=== PATIENT | female | born 1965 | race Caucasian/White ===

== ENCOUNTER 2019-11-20 00:03 | Emergency (ER) | payer OTHER ==
[~2019-11-20] VITALS: Ht 149.9 cm; Wt 88.5 kg
[2019-11-20] MEDS ORDERED: AVALIDE 300-121 EACH (00:25)
[2019-11-20] MEDS ORDERED: FOLIC ACID0.8 M1 (00:26)
[2019-11-20] MEDS ORDERED: SYNTHROID175 MCG (00:26)
[2019-11-20] MEDS ORDERED: SULFASALAZINE500 M1 (00:26)
[2019-11-20] MEDS ORDERED: SIMVASTATIN5 MG (00:26)
[2019-11-20] MEDS ORDERED: ASPIR 8181 MG (00:27)
[2019-11-20] MEDS ORDERED: ZITHROMAX500 MG PO (01:48)
== END 2019-11-20 01:59 | disposition home or self-care (01) ==
LOC: ER 00:03
DX: R53.1 Weakness (principal)

== ENCOUNTER 2022-12-21 21:26 | Emergency (ER) | payer OTHER ==
[~2022-12-21] VITALS: Ht 157.5 cm; Wt 90.7 kg
[~2022-12-21 21:26] MED LIST: ASPIR 8181 MG; AVALIDE 300-121 EACH; FOLIC ACID0.8 M1; SIMVASTATIN5 MG; SULFASALAZINE500 M1; SYNTHROID175 MCG; ZITHROMAX500 MG PO
== END 2022-12-21 23:43 | disposition home or self-care (01) ==
LOC: ER 21:26
DX: T54.3X1A Toxic effect of corrosive alkalis and alkali-like substances, accidental (unintentional), initial encounter (principal); T23.402A Corrosion of unspecified degree of left hand, unspecified site, initial encounter; T24.412A Corrosion of unspecified degree of left thigh, initial encounter; T22.412A Corrosion of unspecified degree of left forearm, initial encounter; Y93.89 Activity, other specified; Y92.018 Other place in single-family (private) house as the place of occurrence of the external cause; Y99.9 Unspecified external cause status; I10 Essential (primary) hypertension

== ENCOUNTER 2024-01-10 06:06 | Emergency (ER) | payer OTHER ==
[~2024-01-10] VITALS: Ht 147.3 cm; Wt 88.9 kg
[2024-01-10] MEDS ORDERED: AVALIDE 300-121 EACH PO (06:19)
[2024-01-10] MEDS ORDERED: PROTONIX20 MG PO (06:20)
[2024-01-10] MEDS ORDERED: METHYLPREDNISOLONE SOD SUCC 125 MG VIAL IV ONE (06:45)
[2024-01-10] MEDS ORDERED: GUAIFENESIN/DEXTROMETHORPHAN 10ML BLIST.PACK PO ONE ×2 (06:45→07:19)
[2024-01-10] MEDS ORDERED: KETOROLAC TROMETHAMINE 30 MG VIAL IV ONE (07:00)
[2024-01-10] MEDS ORDERED: LEVALBUTEROL HCL 1.25 MG/3 ML SOLUTION IH SCH (07:00)
[2024-01-10] MEDS ORDERED: KETOROLAC TROMETHAMINE 30 MG VIAL ONE (07:19)
[2024-01-10] MEDS ORDERED: METHYLPREDNISOLONE SOD SUCC 125 MG VIAL ONE (07:19)
[2024-01-10] MEDS ORDERED: LEVALBUTEROL HCL 1.25 MG/3 ML SOLUTION IH ONE (07:52)
[2024-01-10 08:56] LABS: HEMATOCRIT 44.2 % (36.0-45.00); HEMOGLOBIN 15.2 g/dL (12.0-15.00); MEAN CELL VOLUME 91.5 fL (80.00-100.00); MEAN CORPUSCULAR HEMOGLOBIN 31.4 pg (27.00-32.0); MEAN CORPUSCULAR HGB CONC 34.3 g/dl (32.0-36.0); PLATELET COUNT 252 K/uL (150-450); RED BLOOD COUNT 4.83 M/uL (4.00-6.00); RED CELL DISTRIBUTION WIDTH 13.8 % (11.5-14.5)
[2024-01-10 09:08] LABS: ALBUMIN 3.9 gm/dL (3.4-5.0); BILIRUBIN TOTAL 0.56 mg/dL (0.3-1.2); CALCIUM 9.8 mg/dL (8.5-10.1); CREATININE SERUM 0.97 mg/dL (0.55-1.02); GFR 58.78; GLOBULINA 3.6 G/DL (2.4-3.5); POTASSIUM 3.89 mEq/L (3.5-5.1); TOTAL PROTEIN 7.5 gm/dL (6.4-8.2)
== END 2024-01-10 10:14 | disposition home or self-care (01) ==
LOC: ER 06:08
PROVIDERS: General Practice
DX: J40 Bronchitis, not specified as acute or chronic (principal); J06.9 Acute upper respiratory infection, unspecified; R05.9 Cough, unspecified; Z20.822 Contact with and (suspected) exposure to COVID-19; I10 Essential (primary) hypertension

== ENCOUNTER 2024-05-15 01:40 | Emergency (ER) | payer OTHER ==
[~2024-05-15] VITALS: Ht 147.3 cm; Wt 86.2 kg
[~2024-05-15 01:40] MED LIST changes: +AVALIDE 300-121 EACH PO; +PROTONIX20 MG PO
[2024-05-15] MEDS ORDERED: OZEMPIC0.25 MG/02 (02:15)
[2024-05-15] MEDS ORDERED: FAMOTIDINE/PF 20 MG in 0.9 % SODIUM CHLORIDE 8 ML IV PUSH STA (02:48)
[2024-05-15] MEDS ORDERED: DIPHENOXYLATE HCL/ATROPINE 1 UDTAB TABLET PO ONE (03:00)
[2024-05-15] MEDS ORDERED: HYOSCYAMINE SULFATE 0.125 MG TAB.SUBL SL ONE (03:00)
[2024-05-15] MEDS ORDERED: 0.9 % SODIUM CHLORIDE 1,000 ML IV SCH (03:00)
[2024-05-15] MEDS ORDERED: ONDANSETRON HCL 2 MG/ML VIAL IV ONE (03:00)
[2024-05-15] MEDS ORDERED: ONDANSETRON HCL 2 MG/ML VIAL ONE (03:32)
[2024-05-15] MEDS ORDERED: FAMOTIDINE/PF 20 MG/2 ML VIAL ONE (03:32)
[2024-05-15] MEDS ORDERED: HYOSCYAMINE SULFATE 0.125 MG TAB.SUBL ONE (03:32)
[2024-05-15 05:18] LABS: HEMOGLOBIN 16.5 g/dL (12.0-15.00); MEAN CELL VOLUME 96.2 fL (80.00-100.00); MEAN CORPUSCULAR HEMOGLOBIN 32.4 pg (27.00-32.0); MEAN CORPUSCULAR HGB CONC 33.7 g/dl (32.0-36.0); PLATELET COUNT 290 K/uL (150-450); RED CELL DISTRIBUTION WIDTH 14.4 % (11.5-14.5)
[2024-05-15 05:48] LABS: ALBUMIN 4.3 gm/dL (3.4-5.0); BILIRUBIN TOTAL 0.47 mg/dL (0.3-1.2); BILIRUBIN,CONJUGATED 0.14 mg/dL (0.0-0.2); BILIRUBIN,UNCONJUGATED 0.33 mg/dL (0.0-0.6); CALCIUM 9.7 mg/dL (8.5-10.1); CREATININE SERUM 1.2 mg/dL (0.55-1.02); GFR 45.98; GLOBULINA 3.8 G/DL (2.4-3.5); POTASSIUM 4.05 mEq/L (3.5-5.1); TOTAL PROTEIN 8.1 gm/dL (6.4-8.2)
[2024-05-15] MEDS ORDERED: PEPCID AC20 MG PO (06:46)
[2024-05-15] MEDS ORDERED: ONDANSETRON ODT8 MG PO (06:46)
[2024-05-15] MEDS ORDERED: METOCLOPRAMIDE HCL 10 MG in DEXTROSE 5 % IN WATER 50 ML IV ONE (07:30)
== END 2024-05-15 08:43 | disposition home or self-care (01) ==
LOC: ER 01:42
PROVIDERS: General Practice
DX: K52.89 Other specified noninfective gastroenteritis and colitis (principal); R11.2 Nausea with vomiting, unspecified; E11.9 Type 2 diabetes mellitus without complications; I10 Essential (primary) hypertension
CPT/HCPCS: 36415; 96365; 96366; 99282; J2405; J7030

== ENCOUNTER 2024-07-25 08:58 | Inpatient (IN) | payer OTHER ==
[~2024-07-25] VITALS: Ht 149.9 cm; Wt 83.5 kg
[~2024-07-25 08:58] MED LIST changes: +ONDANSETRON ODT8 MG PO; +OZEMPIC0.25 MG/02; +PEPCID AC20 MG PO
--- NOTE | 2024-07-25 09:25 | NUR ---
PTE ALERTA Y ORIENTADA X3 VERBALIZA TENER VOMITOS Y DIARREA DESDE HACE 3 JAMES SE LE CORY S/V ESTABLE Y SE UBICA EN ROJAS
[2024-07-25] MEDS ORDERED: FAMOTIDINE/PF 20 MG/2 ML VIAL IV PUSH ONE (10:30)
[2024-07-25] MEDS ORDERED: 0.9 % SODIUM CHLORIDE 1,000 ML IV SCH ×2 (10:30→17:15)
[2024-07-25] MEDS ORDERED: ONDANSETRON HCL 2 MG/ML VIAL IV ONE (10:30)
--- NOTE | 2024-07-25 10:50 | NUR ---
SE ORIENTA PTE SOBRE TX, REFIERE ENTENDER Y ACEPTAR. SE CORY MUESTRAS DE LABORATORIO Y SE CANALIZA, SE ADMINISTRAN MEDICAMENTOS SHANDRA ORDEN MEDICA Y BAJO MEDIDAS ASEPTICAS. PTE TOLERA.
[2024-07-25 11:31] LABS: HEMATOCRIT 43.9 % (36.0-45.00); HEMOGLOBIN 15.2 g/dL (12.0-15.00); MEAN CELL VOLUME 93.9 fL (80.00-100.00); MEAN CORPUSCULAR HEMOGLOBIN 32.6 pg (27.00-32.0); MEAN CORPUSCULAR HGB CONC 34.7 g/dl (32.0-36.0); PLATELET COUNT 260 K/uL (150-450); RED BLOOD COUNT 4.68 M/uL (4.00-6.00); RED CELL DISTRIBUTION WIDTH 13.5 % (11.5-14.5)
[2024-07-25 11:44] LABS: ALBUMIN 3.9 gm/dL (3.4-5.0); BILIRUBIN TOTAL 0.41 mg/dL (0.3-1.2); CALCIUM 9.2 mg/dL (8.5-10.1); CREATININE SERUM 1.29 mg/dL (0.55-1.02); GFR 42.3; GLOBULINA 3.5 G/DL (2.4-3.5); POTASSIUM 3.6 mEq/L (3.5-5.1); TOTAL PROTEIN 7.4 gm/dL (6.4-8.2)
[2024-07-25] MEDS ORDERED: METRONIDAZOLE/SODIUM CHLORIDE 500 MG/100 ML PIGGYBACK IV ONE (12:15)
[2024-07-25] MEDS ORDERED: LOPERAMIDE HCL 2 MG CAPSULE PO ONE (15:30)
[2024-07-25] MEDS ORDERED: PANTOPRAZOLE SODIUM 40 MG in 0.9 % SODIUM CHLORIDE 8 ML IV PUSH STA (17:20)
[2024-07-25] MEDS ORDERED: CIPROFLOXACIN IN 5 % DEXTROSE 200 ML IV SCH (17:40)
[2024-07-25] MEDS ORDERED: ONDANSETRON HCL 4 MG in 0.9 % SODIUM CHLORIDE 50 ML IV PRN (17:45)
[2024-07-25] MEDS ORDERED: 0.9 % SODIUM CHLORIDE 1,000 ML IV ONE (17:45)
[2024-07-25 19:34] LABS: URINE APPEARANCE Cloudy; URINE BILIRRUBIN Small (NEGATIVE); URINE BLOOD NHT; URINE COLOR Dark Yellow; URINE GLUCOSE Negative (NEGATIVE); URINE KETONE Trace (NEGATIVE); URINE LEUKOCYTE Moderate; URINE NITRATE Negative; URINE PROTEIN Trace (NEGATIVE); URINE UROBILINOGEN 0.2 E.U./dl
[2024-07-25 19:39] LABS: URINE BACTERIA 698.8 uL (0.0-1933); URINE CAST 3.97 uL (0.0-1.40); URINE EPITHELIAL CELLS 91.9 uL (0.0-38.8); URINE RBC 18.2 uL (0.0-20.8); URINE WBC 1273.2 uL (0.0-23.2)
[2024-07-25 19:45] LABS: INR 1.06; PARTIAL THROMBOPLASTIN TIME 28.2 SECONDS (22.0-34.0); PROTHROMBIN TIME 11.5 SECONDS (9.0-11.5)
[2024-07-25 21:04] LABS: ob POSITIVE (NEGATIVE)
[2024-07-25 22:48] VITALS: BP 153/76; O2SAT 97
[2024-07-26] MEDS ORDERED: METRONIDAZOLE/SODIUM CHLORIDE 100 ML IV SCH (01:00)
[2024-07-26 01:23] VITALS: BP 138/81
[2024-07-26] MEDS ORDERED: LEVOTHYROXINE SODIUM 175 MCG TABLET PO SCH (06:00)
[2024-07-26 08:19] VITALS: BP 142/63; O2SAT 94
[2024-07-26] MEDS ORDERED: KETOROLAC TROMETHAMINE 30 MG VIAL IM PRN (08:45)
[2024-07-26] MEDS ORDERED: ENOXAPARIN SODIUM 40 MG/0.4 ML SYRINGE SUBCUTANEO SCH (09:00)
[2024-07-26] MEDS ORDERED: FAMOTIDINE/PF 20 MG in 0.9 % SODIUM CHLORIDE 8 ML IV PUSH SCH (09:00)
[2024-07-26] MEDS ORDERED: IRBESARTAN 75 MG TABLET PO SCH (14:00)
[2024-07-26] MEDS ORDERED: FOLIC ACID 1 MG TABLET PO SCH (17:00)
[2024-07-26] MEDS ORDERED: SIMVASTATIN 10 MG TABLET PO SCH (17:00)
[2024-07-26 18:04] VITALS: BP 147/79; O2SAT 98
[2024-07-27 01:14] VITALS: BP 119/62
[2024-07-27] MEDS ORDERED: LEVOTHYROXINE SODIUM 150 MCG TABLET PO SCH (06:00)
[2024-07-27 08:35] VITALS: BP 129/79
[2024-07-27 17:05] VITALS: BP 155/74; O2SAT 100
[2024-07-28 00:50] VITALS: BP 120/51
[2024-07-28 08:42] VITALS: BP 155/81; O2SAT 95
[2024-07-28] MEDS ORDERED: CIPRO500 MG PO (16:15)
[2024-07-28] MEDS ORDERED: INTESTINEX680 M2 PO (16:15)
[2024-07-28] MEDS ORDERED: PEPCID AC20 MG PO (16:15)
[2024-07-28] MEDS ORDERED: METRONIDAZOLE500 MG PO (16:15)
[2024-07-28 17:01] VITALS: BP 146/82
== END 2024-07-28 17:06 | disposition home or self-care (01) | DRG 392 ==
LOC: ER 09:01 → MEDJ 18:36
PROVIDERS: Emergency Medicine; General Practice; ADMIT Internal Medicine; ATTEND Internal Medicine
PROC: 8E0ZXY6 Isolation (ICD-10-PCS; principal; 2024-07-25)
PROC: BW21ZZZ Computerized Tomography (CT Scan) of Abdomen and Pelvis (ICD-10-PCS; 2024-07-25)
PROC: 05H933Z Insertion of Infusion Device into Right Brachial Vein, Percutaneous Approach (ICD-10-PCS; 2024-07-26)
PROC: BW3GZZZ Magnetic Resonance Imaging (MRI) of Pelvic Region (ICD-10-PCS; 2024-07-27)
PROC: BW3GYZZ Magnetic Resonance Imaging (MRI) of Pelvic Region using Other Contrast (ICD-10-PCS; 2024-07-27)
DX: A09 Infectious gastroenteritis and colitis, unspecified (principal); R65.10 Systemic inflammatory response syndrome (SIRS) of non-infectious origin without acute organ dysfunction; N17.9 Acute kidney failure, unspecified; E11.9 Type 2 diabetes mellitus without complications; I10 Essential (primary) hypertension; K21.9 Gastro-esophageal reflux disease without esophagitis; M19.90 Unspecified osteoarthritis, unspecified site; M06.9 Rheumatoid arthritis, unspecified; E03.9 Hypothyroidism, unspecified; E66.9 Obesity, unspecified
CPT/HCPCS: 72196

== ENCOUNTER 2025-03-03 06:36 | Emergency (ER) | payer OTHER ==
[~2025-03-03] VITALS: Ht 149.9 cm; Wt 79.8 kg
[~2025-03-03 06:36] MED LIST changes: +CIPRO500 MG PO; +INTESTINEX680 M2 PO; +METRONIDAZOLE500 MG PO
[2025-03-03] MEDS ORDERED: DEXAMETHASONE SODIUM PHOSPHATE 4 MG/ML VIAL IM STA (07:32)
[2025-03-03] MEDS ORDERED: KETOROLAC TROMETHAMINE 30 MG VIAL IM STA (07:32)
[2025-03-03 08:30] LABS: BASO % 0.1 % (0.1-1.2); EOS # 0.28 (0.04-0.54); EOS % 3.8 % (0.7-7.0); LYMPH # 1.75 (1.18-3.74); LYMPH % 23.6 % (19.3-53.1); MEAN PLATELET VOLUME 10.80 fl (9.4-12.4); MONO # 0.71 (0.24-0.82); MONO % 9.6 % (4.7-12.5); NEUT # 4.65 (1.56-6.13); NEUT % 62.6 % (34.0-71.1); RED CELL DISTRIBUTION WIDTH 13.0 % (11.6-14.4)
[2025-03-03 09:08] LABS: ERYTHROCYTE SEDIMENTATION RATE 21 mm/hr (0-30)
[2025-03-03 09:24] LABS: ALT/SGPT 31.0 U/L (12-78); AST/SGOT 26.0 U/L (15-37); BILIRUBIN TOTAL 0.58 mg/dL (0.3-1.2); BUN CREA RATIO 36.0 (7.0-25.0); CREATININE SERUM 1.19 mg/dL (0.55-1.02); GFR 46.27; GLOBULINA 3.2 G/DL (2.4-3.5); GLUCOSE FASTING 100.0 mg/dL (65-100); OSMOLALITY SERUM 290.0 MOSM/KG (275-295)
[2025-03-03] MEDS ORDERED: MORPHINE SULFATE 2 MG/ML SYRINGE IV STA (10:35)
[2025-03-03] MEDS ORDERED: 0.9 % SODIUM CHLORIDE 1,000 ML IV STA (10:40)
[2025-03-03] MEDS ORDERED: NEURONTIN300 MG PO (13:40)
== END 2025-03-03 14:28 | disposition home or self-care (01) ==
LOC: ER 06:37
PROVIDERS: General Practice
DX: G50.0 Trigeminal neuralgia (principal); K11.20 Sialoadenitis, unspecified; M06.8A Other specified rheumatoid arthritis, other specified site; I10 Essential (primary) hypertension; E78.00 Pure hypercholesterolemia, unspecified; J32.3 Chronic sphenoidal sinusitis